=== PATIENT | female | born 1960 | race Caucasian/White ===

== ENCOUNTER 2024-07-15 23:25 | Emergency (ER) | payer MEDICARE ==
[~2024-07-15] VITALS: Ht 162.6 cm; Wt 55.3 kg
[2024-07-15 23:57] LABS: BASOPHILS % (AUTO) 0.9 % (0.0-2.0); EOSINOPHILS # (AUTO) 0.1 K/uL (0.0-0.7); EOSINOPHILS % (AUTO) 2.3 % (0.0-7.0); HEMATOCRIT 36.9 % (31.2-41.9); HEMOGLOBIN 12.6 g/dL (10.9-14.3); LYMPHOCYTES # (AUTO) 2.6 K/uL (0.8-4.8); LYMPHOCYTES % (AUTO) 51.8 % (20.5-51.5); MEAN CORPUSCULAR HGB CONC 34 g/dL (32.3-35.6); MEAN CORPUSCULAR VOLUME 99.8 fL (75.5-95.3); MONOCYTES # (AUTO) 0.3 K/uL (0.1-1.30); MONOCYTES % (AUTO) 6.3 % (0.0-11.0); NEUTROPHILS # (AUTO) 1.9 K/uL (1.8-8.9); NEUTROPHILS % (AUTO) 38.7 % (38.5-71.5); PLATELET COUNT (AUTO) 213 K/uL (179-408); RED BLOOD CELL COUNT(AUTO) 3.69 MIL/uL (3.63-4.92); RED CELL DISTRIBUTION WIDTH 12.9 % (12.3-17.7)
[2024-07-16 00:11] LABS: DIFFERENTIAL COMMENT 1
[2024-07-16 00:14] LABS: CALCIUM 9.1 mg/dL (8.5-10.1); CREATININE 0.7 mg/dL (0.6-1.3); POTASSIUM 4.3 mmol/L (3.5-5.1)
[2024-07-16 00:19] LABS: ALBUMIN 4.1 g/dL (3.4-5.0); BILIRUBIN,TOTAL 0.4 mg/dL (0.2-1.0); TOTAL PROTEIN, SERUM 7.8 g/dL (6.4-8.2)
[2024-07-16] MEDS ORDERED: ONDANSETRON 4 MG/2 ML VIAL ONE (00:31)
[2024-07-16] MEDS ORDERED: PROPOFOL 200 MG/20 ML BOTTLE ONE (00:31)
[2024-07-16] MEDS ORDERED: MORPHINE SULFATE 2 MG/1 ML DISP.SYRIN ONE (00:32)
[2024-07-16] MEDS: ONDANSETRON 4 MG/2 ML VIAL IV ONE (00:40)
[2024-07-16] MEDS: MORPHINE SULFATE 2 MG/1 ML DISP.SYRIN IV ONE (00:40)
[2024-07-16] MEDS: PROPOFOL 200 MG/20 ML BOTTLE IV STA (01:10)
[2024-07-16 05:07] VITALS: BP 112/73; TEMP 98.2; O2SAT 98
== END 2024-07-16 02:40 | disposition home or self-care (01) ==
LOC: ER 23:29
DX: T84.020A Dislocation of internal right hip prosthesis, initial encounter (principal); W01.0XXA Fall on same level from slipping, tripping and stumbling without subsequent striking against object, initial encounter; Y93.89 Activity, other specified; Y92.89 Other specified places as the place of occurrence of the external cause; Y99.8 Other external cause status
CPT/HCPCS: 99285; 27265; 80053; 85025; 85610; 36415; 72170; 99152; 96374; 96375; 73501; J2405; J2270; A4606; A4663; G0500; J3490